=== PATIENT | female | born 1985 | race Caucasian/White ===

== ENCOUNTER 2016-07-08 20:09 | Emergency (ER) | payer OTHER ==
[~2016-07-08 20:09] MED LIST: VICODIN EQUIVAL1 TAB PO
--- NOTE | 2016-07-08 21:24 | ED ORDER SUMMARY ---
..... Patient: CHINTAN COLE OrderSheet [facility] VisitID: [id number] [address] [place] [address] 31y, F Registration Date/Time: 07/08/2016 ORDER SHEET Weight: 86.1 kg (stated) Allergies: No Known Drug Allergy GENERAL ORDERS: Hand 3 or 4V Right Urgent (20:26 07/08/2016 EKoroleva P.A.-C) (Ack 20:29 CHategekimana) (21:02 DDean R.N.) POC Glucose (20:27 07/08/2016 EKoroleva P.A.-C) (20:39 DDean R.N.) Splint (Finger) (Right) (Index, Middle) (Fiberglass) (21:20 07/08/2016 [employer] [facility] Heel Finisher verbal order read back to EKoroleva P.A.-C) (21:20 [employer] [facility] Heel Finisher) MEDICATION ORDERS: Hydrocodone-APAP PO 10/650 mg (NOW, HIGH ALERT MEDICATION) (20:26 07/08/2016 EKoroleva P.A.-C) (Ack 20:29 DDean R.N.) (20:40 DDean R.N.) Motrin PO 800 mg (NOW) (20:26 07/08/2016 EKoroleva P.A.-C) (Ack 20:29 DDean R.N.) (20:40 DDean R.N.) Bactrim DS PO (Tablet 800-160 mg) 1 tab (NOW) (20:26 07/08/2016 EKoroleva P.A.-C) (Ack 20:29 DDean R.N.) (20:40 DDean R.N.) Tdap IM 0.5 mL (NOW, per protocol) (20:44 07/08/2016 EKoroleva P.A.-C) (21:02 DDean R.N.) IV FLUIDS: ORDER SHEET NOTES: [Electronically signed by Ginette EdwardsADennise (21:48 07/08/2016)] [Electronically signed by Mayuri Vargas R.N. (21:58 07/08/2016)] [Electronically locked/signed by Mayuri Vargas R.N. (21:58 07/08/2016)]
--- NOTE | 2016-07-08 21:24 | ED ORDER SUMMARY ---
..... Patient: CHINTAN COLE OrderSheet [facility] VisitID: [id number] [address] [place] [address] 31y, F Registration Date/Time: 07/08/2016 ORDER SHEET Weight: 86.1 kg (stated) Allergies: No Known Drug Allergy GENERAL ORDERS: Hand 3 or 4V Right Urgent (20:26 07/08/2016 EKoroleva P.A.-C) (Ack 20:29 CHategekimana) (21:02 DDean R.N.) POC Glucose (20:27 07/08/2016 EKoroleva P.A.-C) (20:39 DDean R.N.) Splint (Finger) (Right) (Index, Middle) (Fiberglass) (21:20 07/08/2016 [employer] [facility] Desk Top Publisher verbal order read back to EKoroleva P.A.-C) (21:20 [employer] ER Desk Top Publisher) MEDICATION ORDERS: Hydrocodone-APAP PO 10/650 mg (NOW, HIGH ALERT MEDICATION) (20:26 07/08/2016 EKoroleva P.A.-C) (Ack 20:29 DDean R.N.) (20:40 DDean R.N.) Motrin PO 800 mg (NOW) (20:26 07/08/2016 EKoroleva P.A.-C) (Ack 20:29 DDean R.N.) (20:40 DDean R.N.) Bactrim DS PO (Tablet 800-160 mg) 1 tab (NOW) (20:26 07/08/2016 EKoroleva P.A.-C) (Ack 20:29 DDean R.N.) (20:40 DDean R.N.) Tdap IM 0.5 mL (NOW, per protocol) (20:44 07/08/2016 EKoroleva P.A.-C) (21:02 DDean R.N.) IV FLUIDS: ORDER SHEET NOTES: [Electronically signed by Ginette EdwardsADennise (21:48 07/08/2016)] [Electronically signed by Mayuri Vargas R.N. (21:58 07/08/2016)] [Electronically locked/signed by Mayuri Vargas R.N. (21:58 07/08/2016)]
--- NOTE | 2016-07-08 21:24 | ED CLINICAL REPORT ---
Clinical Report - Physicians/Mid Levels [facility] [address] [place] [address] 07/08/2016 20:10 [id number] Time Seen: 20:43 Jul 08 2016. Arrived- By private vehicle. Historian- patient. HISTORY OF PRESENT ILLNESS Chief Complaint: Injury to the right hand. The injury happened just prior to arrival. The patient sustained a laceration. Patient is experiencing mild pain. Patient denies injury to the head or neck. ( sustained a lac from an old diabetic needle prior to arrival while cleaning an old sink in a house, unsure of source patient. Pt reports h/o meth use , non iv, previous testing for hep c/ hiv for patient was negative within the last 2 years. Pt seen at clinic blood work drawn,pt started on keflex, patient concerned about pain, no "pain meds"). REVIEW OF SYSTEMS No tingling. All systems otherwise negative, except as recorded above. PAST HISTORY The patient's dominant hand is the right. She has not had a prior injury to the same area. SOCIAL HISTORY Former smoker. 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 Not an IV drug user. ADDITIONAL NOTES The nursing notes have been reviewed. PHYSICAL EXAM Vital Signs: 07/08/2016 20:15 BP: 119/79. HR: 86. RR: 18. O2 saturation: 96%. Temp: 98 F. Pain level now: 10/10. Appearance: Alert. Head: Head atraumatic. Neck: Normal inspection. Neck supple. CVS: Normal heart rate and rhythm. Heart sounds normal. Respiratory: No respiratory distress. Breath sounds normal. Abdomen: No visible injury. Soft. Skin: Skin warm. (no visible puncutre catarino). Extremities: Dorsal right hand. Right hand web space: (just proximal to mcp of the index finger area of tendernss, no erythema). Right index finger: No tenderness. Tip of right index finger. (full rom, no lymphagetic streak. NO drainage. No sign sof catarino). Neuro: Oriented X 3. LABS, X-RAYS, AND EKG Rt Hand X-ray: (IMPRESSION: 1. Normal right hand. Electronically Final signed by:Reinaldo Wang MD 07/08/2016 9:20:27 PM). PROGRESS AND PROCEDURES PROCEDURES (volar splint for comfort). Course of Care: No signs of fracture or any retained foreign object. Patient with no history of HIV, old needle greater than a year, suspicion for acute HIV is low at this time, patient had labs done outpatient, and she is being treated outpatient for this. Patient here for pain management. Patient is stable. Symptoms better. Patient/family counseled. CLINICAL IMPRESSION Superficial needlestick (contaminated) to the right hand. INSTRUCTIONS Apply ice. Elevate affected areas above chest level. Protect wound and keep wound area clean. Apply bacitracin twice daily. Do not work today, tomorrow. Prescription Medications: Hydrocodone/APAP 5mg / 325mg: take 1 orally every 6 hours as needed for pain. Dispense ten (10). No refill. Ibuprofen 800 mg tablets: take 1 tablet orally every 8 hours for 3 days, as needed for pain. Dispense fifteen (15). No refill. Bactrim DS 800 mg / 160 mg: Take 1 tablet orally every 12 hours for 7 days. Dispense fourteen (14). No refills. Substitution is permissible. Follow-up: Follow up with your doctor in two days for wound check. (Electronically signed by Ginette Edwards P.A.-C 07/08/2016 21:48)
--- NOTE | 2016-07-08 21:24 | ED NURSING NOTES ---
Clinical Report - Nurses [facility] [address] [place] [address] 07/08/2016 20:10 Patient: CHINTAN COLE TRIAGE Triage time 2014. Acuity: LEVEL 4. Chief Complaint: RIGHT UPPER EXTREMITY PAIN and SWELLING. Location of symptoms- right hand (from dirty needle stick at 1300 today). --20:28 Mayuri Vargas R.N. 20:15 07/08/16. BP: 119/79. HR: 86. RR: 18. O2 saturation: 96%. Temp: 98 F. Pain level now: 11/17. --20:28 Mayuri Vargas R.N. Weight: 86.1 kg stated. Height/Length: 62 inches Per Patient. BMI: 34.8. --20:21 Mayuri Vargas R.N. Medications MetFORMIN HCl Oral 1000mg, daily. Zyrtec, daily . --20:26 Mayuri Vargas R.N. Vitamins Oral. --20:26 Mayuri Vargas R.N. Allergies No Known Drug Allergy. --20:26 Mayuri Vargas R.N. History Arrived by private vehicle. Historian: patient. Accompanied by spouse. Primary physician ([facility]). Injury occurred. This occurred (1300). ( was seen at [facility] and placed on antibiotics). She has had swelling. PAST MEDICAL HX: Last tetanus: (2008). Last normal menstrual period- 06/29. SURGERY HX: No history of previous surgery. SOCIAL HX: Former smoker (2 years). Alcohol use. (dry for 2 years). History of drug use. (meth in the past (2 years)). --20:28 Mayuri Vargas R.N. PROBLEMS: Sinusitis. Diabetes Mellitus. Hypercholesterolemia. Hypertension. Asthma. --20:24 Mayuri Vargas R.N. ADDITIONAL SURGERIES: no known surgeries. Interventions ID band on patient. To treatment room. --20:28 Mayuri Vargas R.N. PHYSICAL ASSESSMENT 20:15. Ambulatory to room. GENERAL / NEURO / PSYCH: Appears in pain and anxious. EXTREMITIES: ( had slightly swollen). SKIN: Skin is warm and dry. --20:28 Mayuri Vargas R.N. NURSING PROGRESS NOTES 20:15. Patient gowned. Reassurance given. Patient identifiers checked. Call light placed in reach. Side rails up. Bed placed in lowest position. Patient ready for evaluation- chart flagged. --20:28 Mayuri Vargas R.N. 20:35 07/08/2016 Hydrocodone-APAP (Hydrocodone-Acetaminophen) PO 5/325 mg Tablets 2 tab given. Allergies verified, confirmed 5 rights and sedative warning given to the patient. --20:40 Mayuri Vargas R.N. 20:35 07/08/2016 Bactrim DS (Sulfamethoxazole-TMP DS) PO Tablets 1 tab given. Allergies verified and confirmed 5 rights. --20:40 Mayuri Vargas R.N. 20:35 07/08/2016 Motrin PO Tablets 800 mg given. Allergies verified and confirmed 5 rights. --20:40 Mayuri Vargas R.N. 20:41 07/08/16. ( FSBS= 193). --20:41 Mayuri Vargas R.N. 21:01 07/08/2016 TDAP IM 0.5 mL given. (Lot#: [id number], expiration date: 06/18/2018, Department Store Door Greeter: [employer]). Given in the left deltoid. Allergies verified and confirmed 5 rights. Vaccine information statement provided to the patient. --21:02 Mayuri Vargas R.N. 20:55. ( Port x-ray at bedside for hand films). --21:03 Mayuri Vargas R.N. Fiberglass finger splint applied to right index finger. Distal pulses intact, sensation intact and motor within normal limits. --21:18 Santiago Caceres, MANUEL Iron Setter. DISPOSITION / DISCHARGE 21:50. Condition at departure: improved and stable. Discharge instructions provided and reviewed with the patient and family. Reviewed medication(s) (zofran). Patient and family verbalized understanding. Written instructions provided in Panamanian. The patient was discharged home and accompanied by family. She left the Emergency Department in a wheelchair and via private vehicle. Family member driving. --21:56 Mayuri Vargas R.N. 21:45 07/08/16. BP: 112/70. HR: 82. RR: 18. O2 saturation: 97%. Temp: deferred. Pain level now: 08/17. --21:56 Mayuri Vargas R.N. Locked/Released at 07/08/2016 21:58 by Mayuri Vargas R.N.
--- NOTE | 2016-07-08 21:24 | ED NURSING NOTES ---
Clinical Report - Nurses [facility] [address] [place] [address] 07/08/2016 20:10 Patient: CHINTAN COLE TRIAGE Triage time 2014. Acuity: LEVEL 4. Chief Complaint: RIGHT UPPER EXTREMITY PAIN and SWELLING. Location of symptoms- right hand (from dirty needle stick at 1300 today). --20:28 Mayuri Vargas R.N. 20:15 07/08/16. BP: 119/79. HR: 86. RR: 18. O2 saturation: 96%. Temp: 98 F. Pain level now: 11/17. --20:28 Mayuri Vargas R.N. Weight: 86.1 kg stated. Height/Length: 62 inches Per Patient. BMI: 34.8. --20:21 Mayuri Vargas R.N. Medications MetFORMIN HCl Oral 1000mg, daily. Zyrtec, daily . --20:26 Mayuri Vargas R.N. Vitamins Oral. --20:26 Mayuri Vargas R.N. Allergies No Known Drug Allergy. --20:26 Mayuri Vargas R.N. History Arrived by private vehicle. Historian: patient. Accompanied by spouse. Primary physician ([facility]). Injury occurred. This occurred (1300). ( was seen at [facility] and placed on antibiotics). She has had swelling. PAST MEDICAL HX: Last tetanus: (2008). Last normal menstrual period- 06/29. SURGERY HX: No history of previous surgery. SOCIAL HX: Former smoker (2 years). Alcohol use. (dry for 2 years). History of drug use. (meth in the past (2 years)). --20:28 Mayuri Vargas R.N. PROBLEMS: Sinusitis. Diabetes Mellitus. Hypercholesterolemia. Hypertension. Asthma. --20:24 Mayuri Vargas R.N. ADDITIONAL SURGERIES: no known surgeries. Interventions ID band on patient. To treatment room. --20:28 Mayuri Vargas R.N. PHYSICAL ASSESSMENT 20:15. Ambulatory to room. GENERAL / NEURO / PSYCH: Appears in pain and anxious. EXTREMITIES: ( had slightly swollen). SKIN: Skin is warm and dry. --20:28 Mayuri Vargas R.N. NURSING PROGRESS NOTES 20:15. Patient gowned. Reassurance given. Patient identifiers checked. Call light placed in reach. Side rails up. Bed placed in lowest position. Patient ready for evaluation- chart flagged. --20:28 Mayuri Vargas R.N. 20:35 07/08/2016 Hydrocodone-APAP (Hydrocodone-Acetaminophen) PO 5/325 mg Tablets 2 tab given. Allergies verified, confirmed 5 rights and sedative warning given to the patient. --20:40 Mayuri Vargas R.N. 20:35 07/08/2016 Bactrim DS (Sulfamethoxazole-TMP DS) PO Tablets 1 tab given. Allergies verified and confirmed 5 rights. --20:40 Mayuri Vargas R.N. 20:35 07/08/2016 Motrin PO Tablets 800 mg given. Allergies verified and confirmed 5 rights. --20:40 Mayuri Vargas R.N. 20:41 07/08/16. ( FSBS= 193). --20:41 Mayuri Vargas R.N. 21:01 07/08/2016 TDAP IM 0.5 mL given. (Lot#: [id number], expiration date: 06/18/2018, Resolution Analyst: [employer]). Given in the left deltoid. Allergies verified and confirmed 5 rights. Vaccine information statement provided to the patient. --21:02 Mayuri Vargas R.N. 20:55. ( Port x-ray at bedside for hand films). --21:03 Mayuri Vargas R.N. Fiberglass finger splint applied to right index finger. Distal pulses intact, sensation intact and motor within normal limits. --21:18 Santiago Caceres, MANULE Department Store Manager. DISPOSITION / DISCHARGE 21:50. Condition at departure: improved and stable. Discharge instructions provided and reviewed with the patient and family. Reviewed medication(s) (zofran). Patient and family verbalized understanding. Written instructions provided in Swiss. The patient was discharged home and accompanied by family. She left the Emergency Department in a wheelchair and via private vehicle. Family member driving. --21:56 Mayuri Vargas R.N. 21:45 07/08/16. BP: 112/70. HR: 82. RR: 18. O2 saturation: 97%. Temp: deferred. Pain level now: 08/17. --21:56 Mayuri Vargas R.N. Locked/Released at 07/08/2016 21:58 by Mayuri Vargas R.N.
--- NOTE | 2016-07-08 21:25 | DIAGNOSTIC IMAGING REPORT ---
PROCEDURE: XR HAND 3 OR 4 VIEWS - RIGHT INDICATION: TRAUMA/INJURY TECHNIQUE: Four views. COMPARISON: None. FINDINGS: Osseous structures and joint spaces are normal. IMPRESSION: 1. Normal right hand.
--- NOTE | 2016-07-08 21:58 | ED DISCHARGE INSTRUCTIONS ---
Patient: CHINTAN COLE General Instructions [facility] VisitID: [id number] [address] [place] [address] 31y, F Registration Date/Time: 07/08/2016 Superficial needlestick (contaminated) to the right hand. INSTRUCTIONS Apply ice. Elevate affected areas above chest level. Protect wound and keep wound area clean. Apply bacitracin twice daily. Do not work today, tomorrow. Prescription Medications: Hydrocodone/APAP 5mg / 325mg: take 1 orally every 6 hours as needed for pain. Dispense ten (10). No refill. Ibuprofen 800 mg tablets: take 1 tablet orally every 8 hours for 3 days, as needed for pain. Dispense fifteen (15). No refill. Bactrim DS 800 mg / 160 mg: Take 1 tablet orally every 12 hours for 7 days. Dispense fourteen (14). No refills. Substitution is permissible. Follow-up: Follow up with your doctor in two days for wound check. ADDITIONAL INFORMATION Body Fluid Exposure(Non-Occupational) There are two important illnesses that can be transmitted through body fluid exposure: HIV Hepatitis (types B, C and D) Most persons exposed one timeto the body fluid of a person infected with HIV or hepatitis do not get the virus. However, exposure must be taken very seriously. Both HIV and hepatitis virus infection can lead to chronic illness and . The risk of infection depends on the type of exposure: Type of exposure to + HIV source Risk Needle stick 3 out of 1000 exposures Needle sharing with drug injection 7 out of 1000 exposures Anal, vaginal, oral intercourse less than 1 out of 1000 exposures If you have notbeen immunized against Hepatitis B, the risk of becoming infected with Hepatitis B and C after a single exposure is much higher than with HIV. For needle stick or non-sexual mucous membrane exposures the risk is 6-24% (6-24 out of 100 exposures) for Hepatitis B. The risk of becoming infected after similar exposure to someone with Hepatitis C is 1-10% (1-10 out of 100 exposures). If you are in a sexual relationship, discuss your exposure and its risks with your partner. Consider abstaining from sex or using condoms and avoiding until test results of the person who exposed you is negative, or your follow-up testing is performed. Do not donate blood, tissue or semen. If you are a woman who is breast feeding, discuss the risks to your infant with your doctor, to decide if you want to stop. Testing: Initial testing for HIV and hepatitis status will be performed on you today.If the HIV and hepatitis status of the person you were exposed to is not known, efforts should be made to have that person tested.If that person is positive or unknown, and your results are negative, you will need to have more blood tests at a later time to find out if infection has occurred. It can take up to eight weeks for blood tests to turn positive for hepatitis.If HIV infection has occurred, the test usually becomes positive by three months after exposure, but a positive result could be delayed up to six months after exposure. Therefore, repeat HIV testing may be done in 6 and 12 weeks, and again at 6 months after exposure.If tests are negative for hepatitis and HIV on final follow-up testing, you can assume that you were not infected as a result of this exposure. Post-Exposure Prophylaxis (Pep): To protect you from Hepatitis B, treatment will depend on the status of the person who exposed you, and whether you have been previously vaccinated.If you have not been previously vaccinated, you can receive the first dose of the vaccination series today. There is no preventive treatment or vaccine for hepatitis C or D. Based on how recently the exposure occurred, the type of exposure, and the risk of HIV in the person who you were exposed to, preventive treatment with antiviral medicine may be advised. Treatment consists of two or three oral medicines taken 2-3 times a day for four weeks. It is recommended to start the treatment as soon as possible after the exposure. Since treatment may be started before test results are known, it can be stopped if the source patient test results are negative. Facts You Need To Know Before Making A Treatment Decision: There is only limited information about the effectiveness of drugs used for PEP and their toxicity in persons without HIV infection. Although the short-term toxicity of anti-viral drugs is usually limited, serious adverse events have occurred. Be sure you understand the risk of transmission of disease and the risk/benefit of treatment before making your decision. If you are not sure, ask for more information. You may refuse or stop PEP treatment at any time. Get Prompt Medical Attention if any of the following occur: Unexplained fever over 100.4F (38.0C) Swollen lymph glands Sore throat Rash Muscle or joint aching Prolonged or recurring diarrhea, nausea, or vomiting Frequent headaches Dark urine or light colored stools; or, jaundice (yellow color to skin or eyes) Abdominal pain Unusual and prolonged fatigue Hydrocodone Bitartrate, Acetaminophen Oral tablet What is this medicine? ACETAMINOPHEN; HYDROCODONE (a set a SEB alpa fen; neris droe KOE done) is a pain reliever. It is used to treat mild to moderate pain. How should I use this medicine? Take this medicine by mouth. Swallow it with a full glass of water. Follow the directions on the prescription label. If the medicine upsets your stomach, take the medicine with food or milk. Do not take more than you are told to take. Talk to your medical records administrator regarding the use of this medicine in children. This medicine is not approved for use in children. What side effects may I notice from receiving this medicine? Side effects that you should report to your doctor or health gericare aide teacher as soon as possible: allergic reactions like skin rash, itching or hives, swelling of the face, lips, or tongue breathing problems confusion feeling faint or lightheaded, falls stomach pain yellowing of the eyes or skin Side effects that usually do not require medical attention (report to your doctor or health gericare aide teacher if they continue or are bothersome): nausea, vomiting stomach upset What may interact with this medicine? alcohol antihistamines isoniazid medicines for depression, anxiety, or psychotic disturbances medicines for sleep muscle relaxants naltrexone narcotic medicines (opiates) for pain phenobarbital ritonavir tramadol What if I miss a dose? If you miss a dose, take it as soon as you can. If it is almost time for your next dose, take only that dose. Do not take double or extra doses. Where should I keep my medicine? Keep out of the reach of children. This medicine can be abused. Keep your medicine in a safe place to protect it from theft. Do not share this medicine with anyone. Selling or giving away this medicine is dangerous and against the law. Store at room temperature between 15 and 30 degrees C (59 and 86 degrees F). Protect from light. Keep container tightly closed. Throw away any unused medicine after the expiration date. Discard unused medicine and used packaging carefully. Pets and children can be harmed if they find used or lost packages. What should I tell my health care provider before I take this medicine? They need to know if you have any of these conditions: brain tumor Crohn's disease, inflammatory bowel disease, or ulcerative colitis drink more than 3 alcohol-containing drinks per day drug abuse or addiction head injury heart or circulation problems kidney disease or problems going to the bathroom liver disease lung disease, asthma, or breathing problems an unusual or allergic reaction to acetaminophen, hydrocodone, other opioid analgesics, other medicines, foods, dyes, or preservatives or trying to get breast-feeding What should I watch for while using this medicine? Tell your doctor or health gericare aide teacher if your pain does not go away, if it gets worse, or if you have new or a different type of pain. You may develop tolerance to the medicine. Tolerance means that you will need a higher dose of the medicine for pain relief. Tolerance is normal and is expected if you take the medicine for a long time. Do not suddenly stop taking your medicine because you may develop a severe reaction. Your body becomes used to the medicine. This does NOT mean you are addicted. Addiction is a behavior related to getting and using a drug for a non-medical reason. If you have pain, you have a medical reason to take pain medicine. Your doctor will tell you how much medicine to take. If your doctor wants you to stop the medicine, the dose will be slowly lowered over time to avoid any side effects. You may get drowsy or dizzy when you first start taking the medicine or change doses. Do not drive, use machinery, or do anything that may be dangerous until you know how the medicine affects you. Stand or sit up slowly. There are different types of narcotic medicines (opiates) for pain. If you take more than one type at the same time, you may have more side effects. Give your health care provider a list of all medicines you use. Your doctor will tell you how much medicine to take. Do not take more medicine than directed. Call emergency for help if you have problems breathing. The medicine will cause constipation. Try to have a bowel movement at least every 2 to 3 days. If you do not have a bowel movement for 3 days, call your doctor or health gericare aide teacher. Too much acetaminophen can be very dangerous. Do not take Tylenol (acetaminophen) or medicines that contain acetaminophen with this medicine. Many non-prescription medicines contain acetaminophen. Always read the labels carefully. You have been given the following additional information: Body Fluid Exposure, Not Health Care Worker Hydrocodone Bitartrate, Acetaminophen Oral tablet Do not work today, tomorrow. (Electronically signed by Ginette Edwards P.A.-C 07/08/2016 21:48)
--- NOTE | 2016-07-08 21:58 | ED MAR SUMMARY ---
..... Medication Administration Record [facility] [address] [place] [address] Patient: CHINTAN COLE Visit ID: [id number] 31y, F Weight: 86.1 kg Height/Length: 62 in BMI: 34.8 ALLERGIES: No Known Drug Allergy Given 20:07/08/2016 Mayuri Vargas R.N. Medication Administered: HYDROCODONE-APAP [PO] (HYDROCODONE-ACETAMINOPHEN), Dose: 2 tab 5/325 mg Tablets PO. Medication Ordered: Hydrocodone-APAP PO 10/650 mg (NOW, HIGH ALERT MEDICATION). Given :07/08/2016 Mayuri Vargas R.N. Medication Administered: MOTRIN [PO], Dose: 800 mg Tablets PO. Medication Ordered: Motrin PO 800 mg (NOW). Given :07/08/2016 Mayuri Vargas R.N. Medication Administered: BACTRIM DS [PO] (SULFAMETHOXAZOLE-TMP DS), Dose: 1 tab Tablets PO. Medication Ordered: Bactrim DS PO (Tablet 800-160 mg) 1 tab (NOW). Given 21:07/08/2016 Mayuri Vargas R.N. Medication Administered: TDAP [IM], Dose: 0.5 mL IM. Medication Ordered: Tdap IM 0.5 mL (NOW, per protocol).
--- NOTE | 2016-07-08 21:58 | ED MAR SUMMARY ---
..... Medication Administration Record [facility] [address] [place] [address] Patient: CHINTAN COLE Visit ID: [id number] 31y, F Weight: 86.1 kg Height/Length: 62 in BMI: 34.8 ALLERGIES: No Known Drug Allergy Given 20:07/08/2016 Mayuri Vargas R.N. Medication Administered: HYDROCODONE-APAP [PO] (HYDROCODONE-ACETAMINOPHEN), Dose: 2 tab 5/325 mg Tablets PO. Medication Ordered: Hydrocodone-APAP PO 10/650 mg (NOW, HIGH ALERT MEDICATION). Given :07/08/2016 Mayuri Vargas R.N. Medication Administered: MOTRIN [PO], Dose: 800 mg Tablets PO. Medication Ordered: Motrin PO 800 mg (NOW). Given :07/08/2016 Mayuri Vargas R.N. Medication Administered: BACTRIM DS [PO] (SULFAMETHOXAZOLE-TMP DS), Dose: 1 tab Tablets PO. Medication Ordered: Bactrim DS PO (Tablet 800-160 mg) 1 tab (NOW). Given 21:07/08/2016 Mayuri Vargas R.N. Medication Administered: TDAP [IM], Dose: 0.5 mL IM. Medication Ordered: Tdap IM 0.5 mL (NOW, per protocol).
--- NOTE | 2016-07-08 21:58 | ED MED RECONCILIATION SUMMARY ---
Patient: CHINTAN COLE Medication Reconciliation Report [facility] VisitID: [id number] [address] [place] [address] 31y, F Registration Date/Time: 07/08/2016 Weight: 86.1 kg Height/Length: 62 in. BMI: 34.8 ALLERGIES: No Known Drug Allergy The patient's Home Medications are listed below: THE FOLLOWING MEDICATIONS NEED TO BE RECONCILED: MetFORMIN HCl Oral 1000mg, daily Vitamins Oral Zyrtec, daily The source(s) of the original Home Medication information: Not obtained. The following Medications were given to the patient in the Emergency Department: Hydrocodone-APAP [PO] PO 2 tab, administered: 07/08/2016 8:35:00 PM Bactrim DS [PO] PO 1 tab, administered: 07/08/2016 8:35:00 PM Motrin [PO] PO 800 mg, administered: 07/08/2016 8:35:00 PM TDAP [IM] IM 0.5 mL, administered: 07/08/2016 9:01:00 PM The following Medications were prescribed to the patient: Hydrocodone/APAP 5mg / 325mg: take 1 orally every 6 hours as needed for pain. Dispense ten (10). No refill. -- Ginette Edwards P.A.-Sanjeev Ibuprofen 800 mg tablets: take 1 tablet orally every 8 hours for 3 days, as needed for pain. Dispense fifteen (15). No refill. -- Ginette Edwards P.A.-Sanjeev Bactrim DS 800 mg / 160 mg: Take 1 tablet orally every 12 hours for 7 days. Dispense fourteen (14). No refills. Substitution is permissible. -- Ginette Edwards P.A.-C
--- NOTE | 2016-07-08 21:58 | ED MED RECONCILIATION SUMMARY ---
Patient: CHINTAN COLE Medication Reconciliation Report [facility] VisitID: [id number] [address] [place] [address] 31y, F Registration Date/Time: 07/08/2016 Weight: 86.1 kg Height/Length: 62 in. BMI: 34.8 ALLERGIES: No Known Drug Allergy The patient's Home Medications are listed below: THE FOLLOWING MEDICATIONS NEED TO BE RECONCILED: MetFORMIN HCl Oral 1000mg, daily Vitamins Oral Zyrtec, daily The source(s) of the original Home Medication information: Not obtained. The following Medications were given to the patient in the Emergency Department: Hydrocodone-APAP [PO] PO 2 tab, administered: 07/08/2016 8:35:00 PM Bactrim DS [PO] PO 1 tab, administered: 07/08/2016 8:35:00 PM Motrin [PO] PO 800 mg, administered: 07/08/2016 8:35:00 PM TDAP [IM] IM 0.5 mL, administered: 07/08/2016 9:01:00 PM The following Medications were prescribed to the patient: Hydrocodone/APAP 5mg / 325mg: take 1 orally every 6 hours as needed for pain. Dispense ten (10). No refill. -- Ginette Edwards P.A.-Sanjeev Ibuprofen 800 mg tablets: take 1 tablet orally every 8 hours for 3 days, as needed for pain. Dispense fifteen (15). No refill. -- Ginette Edwards P.A.-Sanjeev Bactrim DS 800 mg / 160 mg: Take 1 tablet orally every 12 hours for 7 days. Dispense fourteen (14). No refills. Substitution is permissible. -- Ginette Edwards P.A.-C
== END 2016-07-08 21:50 | disposition home or self-care (01) ==
LOC: ED SRH 20:09
DX: S61.431A Puncture wound without foreign body of right hand, initial encounter (principal); W46.1XXA Contact with contaminated hypodermic needle, initial encounter; Y93.E9 Activity, other interior property and clothing maintenance; Y92.009 Unspecified place in unspecified non-institutional (private) residence as the place of occurrence of the external cause; Y99.9 Unspecified external cause status; I10 Essential (primary) hypertension; E11.9 Type 2 diabetes mellitus without complications; Z79.84 Long term (current) use of oral hypoglycemic drugs; Z87.891 Personal history of nicotine dependence